=== PATIENT | male | born 1950 | race Caucasian/White ===

== ENCOUNTER 2023-01-22 06:50 | Day surgery (SDC) | payer BC, MEDICARE ==
[2023-01-22] MEDS ORDERED: Lactated Ringers 1,000 ML IV SCH (07:00)
[2023-01-22] MEDS ORDERED: Propofol 200 MG/20 ML SDV ONE (08:09)
[2023-01-22] MEDS ORDERED: fentaNYL 100 MCG/2 ML SDV ONE (08:09)
== END 2023-01-22 10:10 | disposition home or self-care (01) ==
LOC: VM.SDS 06:50
PROVIDERS: ATTEND Family Medicine
DX: D12.3 Benign neoplasm of transverse colon (principal); D12.5 Benign neoplasm of sigmoid colon; D12.6 Benign neoplasm of colon, unspecified; K63.5 Polyp of colon; E78.00 Pure hypercholesterolemia, unspecified; I10 Essential (primary) hypertension; E11.9 Type 2 diabetes mellitus without complications; Z79.02 Long term (current) use of antithrombotics/antiplatelets; Z79.82 Long term (current) use of aspirin; Z80.0 Family history of malignant neoplasm of digestive organs; Z79.84 Long term (current) use of oral hypoglycemic drugs; Z79.899 Other long term (current) drug therapy; Z88.8 Allergy status to other drugs, medicaments and biological substances
CPT/HCPCS: 00811; 45380; 45385; 82947; J2704; J3010; J7120; 88305